=== PATIENT | female | born 2005 | race Caucasian/White ===

== ENCOUNTER 2025-09-01 20:53 | Emergency (ER) | payer OTHER ==
[~2025-09-01] VITALS: Ht 165.1 cm; Wt 61.0 kg
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
[2025-09-01] MEDS ORDERED: CYCLOBENZAPRINE10 MG PO (22:38)
[2025-09-01] MEDS ORDERED: CYCLOBENZAPRINE HCL 10 MG HOME.PACK PO ONE (22:45)
[2025-09-01 23:20] VITALS: BP 124/72
== END 2025-09-01 23:15 | disposition home or self-care (01) ==
LOC: ED 20:53
DX: S93.401A Sprain of unspecified ligament of right ankle, initial encounter (principal); V87.8XXA Person injured in other specified noncollision transport accidents involving motor vehicle (traffic), initial encounter
CPT/HCPCS: 73610; 99283

== ENCOUNTER 2025-09-22 21:51 | Emergency (ER) | payer OTHER ==
[~2025-09-22] VITALS: Ht 165.1 cm; Wt 67.9 kg
[~2025-09-22 21:51] MED LIST: CYCLOBENZAPRINE10 MG PO
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
[2025-09-22] MEDS ORDERED: LAMOTRIGINE150 MG PO (22:05)
[2025-09-22] MEDS ORDERED: NAYZILAM5 MG/0.1 M NS (22:07)
[2025-09-22] MEDS ORDERED: DOXEPIN HCL10 MG PO (22:08)
[2025-09-22] MEDS ORDERED: FLUTICASONE PRO16 GM NAS (22:08)
[2025-09-22] MEDS ORDERED: LORATADINE10 MG PO (22:08)
[2025-09-22] MEDS ORDERED: VENTOLIN HFA18 GM INH (22:08)
[2025-09-22] MEDS ORDERED: LEVOTHYROXINE125 MCG PO (22:09)
[2025-09-22 22:21] VITALS: BP 114/74
== END 2025-09-22 22:26 | disposition home or self-care (01) ==
LOC: ED 21:51
DX: G40.909 Epilepsy, unspecified, not intractable, without status epilepticus (principal); Z79.51 Long term (current) use of inhaled steroids; Z79.899 Other long term (current) drug therapy; Z88.5 Allergy status to narcotic agent
CPT/HCPCS: 99283